=== PATIENT | female | born 2000 | race Caucasian/White ===

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

== ENCOUNTER 2018-06-26 18:35 | Emergency (ER) | payer OTHER ==
[2018-06-26 20:29] VITALS: BP 116/70
[2018-06-26] MEDS ORDERED: Albuterol/Ipratropium NEB.SOL* Albuterol 2.5 MG/Ipratropium 0.5 MG 3 ML INH ONE (20:38)
--- NOTE | 2018-06-26 20:39 | UC ---
Respiratory Complaint HPI - HPI Summary HPI Summary: Patient has had cold symptoms over the past 3 days. She denies any fever or chills. She has no history of asthma although she states during [place] she feels like she has some wheezing and chest tightness. - History of Current Complaint Chief Complaint: UCRespiratory Stated Complaint: COUGH Time Seen by Provider: 06/26/18 20:20 Hx Obtained From: Patient Hx Last Menstrual Period: 'A WEEK AGO' ?: No Onset/Duration: Gradual Onset Timing: Intermittent Episodes Severity Initially: Mild Severity Currently: Mild Pain Intensity: 6 Character: Cough: Productive Aggravating Factors: Exertion Alleviating Factors: Nothing Associated Signs And Symptoms: Positive: Wheezing, URI - Patient states when she has been playing Lacrosse and feels like she has been wheezing. - Allergies/Home Medications Allergies/Adverse Reactions: Allergies Allergy/AdvReac Type Severity Reaction Status Date / Time No Known Allergies Allergy Verified 06/26/18 20:22 Home Medications: Home Medications Bcp 1 tab DAILY 06/26/18 [History] PMH/Surg Hx/FS Hx/Imm Hx Previously Healthy: Yes - Surgical History Surgical History: Yes Surgery Procedure, Year, and Place: RIGHT ACL REPAIR - Family History Known Family History: Positive: Cardiac Disease, Hypertension, Diabetes - Social History Occupation: Student Lives: Dormitory/Roommates Alcohol Use: None Substance Use Type: None Smoking Status (MU): Never Smoked Tobacco Have You Smoked in the Last Year: No - Immunization History Most Recent Influenza Vaccination: NOT IN 2017 Review of Systems All Other Systems Reviewed And Are Negative: Yes Constitutional: Positive: Fever Skin: Positive: Negative Eyes: Positive: Negative ENT: Positive: Negative Respiratory: Positive: Cough - Productive cough with a feeling of chest tightness when she is coughing and wheezing when she is playing Lacrosse, denies any history of asthma Cardiovascular: Positive: Negative Gastrointestinal: Positive: Negative Genitourinary: Positive: Negative Motor: Positive: Negative Neurovascular: Positive: Negative Musculoskeletal: Positive: Negative Neurological: Positive: Negative Psychological: Positive: Negative Is Patient Immunocompromised?: No Physical Exam Triage Information Reviewed: Yes Appearance: Well-Appearing, No Pain Distress, Well-Nourished Vital Signs: Initial Vital Signs Temp 98.7 F 06/26/18 20:25 Pulse 105 06/26/18 20:25 Resp 16 06/26/18 20:25 BP 116/70 06/26/18 20:25 Pulse Ox 98 06/26/18 20:25 Vital Signs Reviewed: Yes Eye Exam: Normal ENT Exam: Normal Neck exam: Normal Neck: Positive: Supple, Nontender, No Lymphadenopathy Respiratory: Positive: No respiratory distress, No accessory muscle use, Rhonchi , Wheezing - Mild wheezing with forced expiration Cardiovascular Exam: Normal Abdominal Exam: Normal Bowel Sounds: Positive: Present Musculoskeletal Exam: Normal Neurological Exam: Normal Psychological Exam: Normal Skin Exam: Normal Re-Evaluation - Re-Evaluation First Eval Change: Improved - Patient states aeration is mildly improved since the DuoNeb treatment however she states she still has a tight productive cough. Respiratory Course/Dx - Course Course Of Treatment: Patient has been comfortable here. She received a DuoNeb treatment which she did not feel improved her symptoms. Chest x-ray shows possibility of an infiltrate. She is given doxycycline 100 mg by mouth here and to continue that prescription. She was also given an albuterol inhaler and those instructions for use were given by myself. - Differential Dx/Diagnosis Differential Diagnosis/HQI/PQRI: Bronchitis, Other - Possible pneumonia Provider Diagnosis: Community acquired pneumonia Discharge - Sign-Out/Discharge Documenting (check all that apply): Patient Departure All imaging exams completed and their final reports reviewed: No - Discharge Plan Condition: Fair Disposition: HOME Prescriptions: Albuterol HFA INHALER* [Ventolin HFA Inhaler*] 2 puff INH Q4H PRN 5 Days #1 mdi PRN Reason: Wheezing DOXYcycline CAP(*) [DOXYcycline 100MG CAP(*)] 100 mg PO BID 7 Days #13 cap Patient Education Materials: Pneumonia (ED) Referrals: No Primary Care Phys,NOPCP [Primary Care Provider] - Additional Instructions: Increase fluids. Use the albuterol inhaler 2 puffs every 4-6 hours as needed for tight cough or wheezing. Do not eat or drink any dairy products 2 hours prior to taking the doxycycline and 2 hours after taking the doxycycline however you should take it with food. Definite follow up at the [facility] in 3 or 4 days if no improvement. - Billing Disposition and Condition Condition: FAIR Disposition: Home - Attestation Statements Provider Attestation: Per institutional requirements, I have reviewed the chart, however, I was not consulted specifically or made aware of this patient by the midlevel provider. I did not personally evaluate, interact with , or disposition this patient.
[2018-06-26] MEDS ORDERED: DOXYcycline CAP(*) 100 MG PO ONE (21:32)
--- NOTE | 2018-06-27 09:18 | UC ---
- EKG/XRAY/CT XRAY: chest - No acute cardiopulmonary process Course/Dx - Diagnoses Provider Diagnoses: Community acquired pneumonia Discharge - Sign-Out/Discharge Documenting (check all that apply): Post-Discharge Follow Up All imaging exams completed and their final reports reviewed: Yes - Discharge Plan Condition: Fair Disposition: HOME Prescriptions: Albuterol HFA INHALER* [Ventolin HFA Inhaler*] 2 puff INH Q4H PRN 5 Days #1 mdi PRN Reason: Wheezing DOXYcycline CAP(*) [DOXYcycline 100MG CAP(*)] 100 mg PO BID 7 Days #13 cap Patient Education Materials: Pneumonia (ED) Referrals: No Primary Care Phys,NOPCP [Primary Care Provider] - Additional Instructions: Increase fluids. Use the albuterol inhaler 2 puffs every 4-6 hours as needed for tight cough or wheezing. Do not eat or drink any dairy products 2 hours prior to taking the doxycycline and 2 hours after taking the doxycycline however you should take it with food. Definite follow up at the [facility] in 3 or 4 days if no improvement. - Billing Disposition and Condition Condition: FAIR Disposition: Home
== END 2018-06-26 21:44 | disposition home or self-care (01) ==
LOC: UCCORT 18:35
DX: J18.9 Pneumonia, unspecified organism (principal)
CPT/HCPCS: 71046; 99212; A9270-GY; G0463

== ENCOUNTER 2018-12-24 07:01 | Emergency (ER) | payer OTHER ==
[2018-12-24 07:11] VITALS: BP 125/78
--- NOTE | 2018-12-24 07:35 | UC ---
Throat Pain/Nasal Robby HPI - HPI Summary HPI Summary: 18 yo female presents with sore throat since last night, awoke with worse throat pain this morning. - History of Current Complaint Chief Complaint: UCGeneralIllness Stated Complaint: SORE THROAT Time Seen by Provider: 12/24/18 07:13 Hx Obtained From: Patient Hx Last Menstrual Period: 'A WEEK AGO' Onset/Duration: Sudden Onset Pain Intensity: 8 Associated Signs & Symptoms: Positive: Hoarseness. Negative: Dysphagia, Drooling, Fever, Vomiting, Rash - Epiglottits Risk Factors Epiglottis Risk Factors: Negative - Allergies/Home Medications Allergies/Adverse Reactions: Allergies Allergy/AdvReac Type Severity Reaction Status Date / Time No Known Allergies Allergy Verified 12/24/18 07:08 Home Medications: Home Medications Citalopram TAB* [CeleXA TAB*] 30 mg PO BEDTIME 12/24/18 [History Confirmed 12/24] PMH/Surg Hx/FS Hx/Imm Hx Previously Healthy: Yes - Surgical History Surgical History: Yes Surgery Procedure, Year, and Place: RIGHT ACL REPAIR - Family History Known Family History: Positive: Cardiac Disease, Hypertension, Diabetes - Social History Alcohol Use: None Substance Use Type: None Smoking Status (MU): Never Smoked Tobacco Have You Smoked in the Last Year: No - Immunization History Most Recent Influenza Vaccination: NOT IN 2017 Review of Systems All Other Systems Reviewed And Are Negative: Yes Constitutional: Negative: Fever, Chills, Fatigue Skin: Negative: Rash, Bruising Eyes: Negative: Blurred Vision, Eye Redness ENT: Positive: Sore Throat, Nasal Discharge. Negative: Ear Ache, Sinus Congestion Cardiovascular: Negative: Palpitations, Chest Pain Gastrointestinal: Negative: Abdominal Pain, Vomiting, Diarrhea, Nausea Genitourinary: Negative: Dysuria Motor: Negative: Decreased ROM Neurovascular: Negative: Decreased Sensation Musculoskeletal: Negative: Arthralgia Neurological: Negative: Headache, Weakness Is Patient Immunocompromised?: No Physical Exam Triage Information Reviewed: Yes Appearance: Well-Appearing, No Pain Distress, Well-Nourished Vital Signs: Initial Vital Signs Temp 98.5 F 12/24/18 07:09 Pulse 72 12/24/18 07:09 Resp 18 12/24/18 07:09 BP 125/78 12/24/18 07:09 Pulse Ox 97 12/24/18 07:09 Eyes: Positive: Conjunctiva Clear ENT: Positive: Normal ENT inspection, Pharynx normal, Nasal congestion, TMs normal, Hoarse voice. Negative: Tonsillar swelling, Muffled voice Neck: Positive: Supple, Nontender, No Lymphadenopathy Respiratory: Positive: Lungs clear, Normal breath sounds. Negative: Crackles, Rhonchi, Wheezing Cardiovascular: Positive: RRR, No Murmur Abdomen Description: Positive: Nontender, Soft Musculoskeletal: Positive: ROM Intact Neurological: Positive: Alert Skin: Negative: Rashes Throat Pain/Nasal Course/Dx - Course Course Of Treatment: Rapid strep was negative. Confirmatory culture obtained. Symptomatic treatment recommended. - Differential Dx/Diagnosis Differential Diagnosis/HQI/PQRI: Tonsillitis Provider Diagnosis: Acute pharyngitis Discharge ED - Sign-Out/Discharge Documenting (check all that apply): Patient Departure All imaging exams completed and their final reports reviewed: No Studies - Discharge Plan Condition: Stable Disposition: HOME Patient Education Materials: Pharyngitis (ED) Referrals: No Primary Care Phys,NOPCP [Primary Care Provider] - Additional Instructions: Symptomatic treatment with ibuprofen otc, salt water gargles and throat lozenges prn. Warm fluids recommended. Confirmatory culture obtained. - Billing Disposition and Condition Condition: STABLE Disposition: Home
== END 2018-12-24 07:48 | disposition home or self-care (01) ==
LOC: UCCORT 07:01
DX: J02.9 Acute pharyngitis, unspecified (principal)
CPT/HCPCS: 87070; 87651; 99211; G0463